=== PATIENT | female | born 1960 | race Caucasian/White ===

== ENCOUNTER 2017-09-30 11:51 | Day surgery (SDC) | payer BC ==
[~2017-09-30] VITALS: Ht 160 cm; Wt 83.0 kg
[2017-09-30 14:01] VITALS: Ht 160 cm; Wt 83.0 kg
[2017-09-30] MEDS ORDERED: NEXIUM (14:10)
[2017-09-30] MEDS ORDERED: AMLODIPINE (14:10)
[2017-09-30] MEDS ORDERED: LOSARTAN DAILY (14:12)
[2017-09-30] MEDS ORDERED: OXYB5SYR2 PO (14:12)
[2017-09-30] MEDS ORDERED: METFORMIN DAILY (14:12)
[2017-09-30] MEDS ORDERED: ATORVASTATIN DAILY (14:12)
[2017-09-30] MEDS ORDERED: PROPOFOL 40 ML ONE (15:01)
[2017-09-30] MEDS ORDERED: LIDOCAINE 2% (SDV) 5 ML INJ ONE (15:01)
--- NOTE | 2017-09-30 15:21 | OPPN ---
Date/Time of Note Date/Time of Note DATE: 09/30/17 TIME: 15:16 Proc Note GI Procedure Date 09/30/17 Indication: other (Dyspepsia/reflux symptoms) Pre-procedure Diagnosis Dyspepsia/reflux symptoms Post-procedure Diagnosis Impression: Multi-ring esophagus. Rule out eosinophilic esophagitis. Biopsies obtained Moderate distal esophagitis. Rule out Soto's esophagus. Biopsies obtained Moderate gastritis. Rule out H. pylori infection. Biopsies obtained Otherwise normal EGD Plan: PPI therapy Review pathology Follow-up as previously scheduled. . Procedure Performed: Endoscopy (Plus biopsies) Surgeon MIGUE RUSSELL MD See signature line Legislative Aide none Anesthesia Type: MAC Anesthesiologist: ELLE CAMARA MD Tourniquet Time none EBL none Transfusion required none Biopsy 1: Gastric body and antrum Biopsy 2: Distal esophagus Biopsy 3: Midesophagus Grafts/Implants none Tubes/Drains none Complication(s) none Disposition: home Procedure Description After informed consent, with the patient/relatives understanding the procedure, its indications, potential risks and complications, including but not limited to : allergic reaction, bleeding, perforation or infection, and after all pertinent questions were answered to the patients satisfaction, the patient/ relatives signed witnessed informed consent. Following this, premedication was administered slowly IV push under careful cardiovascular and respiratory monitoring with pulse oximetry, automatic blood pressure, and bus monitor. Once the sedative effect was achieved the patient was place in the left lateral decubitus, the panendoscope was introduced and advanced under visual control. Careful examination of the upper gastrointestinal tract, both on insertion as well as withdrawal of the instrument disclosing the following findings: ESOPHAGUS: the mucosa of the entire esophagus was carefully examined and showed the following findings: The midesophagus shows a multi-ringed appearance suggestive of eosinophilic esophagitis. Biopsies obtained. The distal esophagus shows erythema edema the mucosa at the esophagogastric junction. Biopsies were obtained to rule out Soto's esophagus. Otherwise the mucosa appears within normal limits. There is no evidence of varices, neoplasm, or stricture. No Hiatal Hernia identified. STOMACH: Upon entrance to the stomach air was insufflated, the gastric bang distended normally. The mucosa of the fundus, body and antrum of the stomach was carefully examined both head-on and on retroflexion, and showed the following findings: There is erythema and edema of the mucosa of the body and antrum the stomach. Biopsies were obtained to rule out H. pylori infection. Otherwise the mucosa appears within normal limits with no abnormalities. There is no evidence of ulcers or neoplasm. PYLORUS: The pylorus was carefully examined and showed the following findings: the pylorus appears patent and within normal limits, with no evidence of gastric outlet obstruction. DUODENUM: The duodenal mucosa was carefully examined in the duodenal bulb as well as the second portion of the duodenum and showed the following findings: the mucosa appears unremarkable with no evidence of duodenitis, ulcer or neoplasm. Copies To: CC: MIGUE RUSSELL MD, MORDO MD Sep 30, 2017 15:21
[2017-09-30 15:56] VITALS: BP 125/77; PULSE 71; RESP 20
== END 2017-09-30 19:42 | disposition home or self-care (01) ==
LOC: GIL 11:51
PROVIDERS: ATTEND Internal Medicine Gastroenterology
DX: K22.70 Barrett's esophagus without dysplasia (principal); K29.70 Gastritis, unspecified, without bleeding; E11.9 Type 2 diabetes mellitus without complications; I10 Essential (primary) hypertension; E78.5 Hyperlipidemia, unspecified
CPT/HCPCS: 43239; 88305; 88312; 88313; Z7610

== ENCOUNTER 2018-07-20 13:54 | Day surgery (SDC) | END 2018-07-20 19:27 | disposition home or self-care (01) ==

== ENCOUNTER 2018-08-12 21:35 | Emergency (ER) | END 2018-08-13 01:48 | disposition home or self-care (01) ==